=== PATIENT | male | born 2000 | race Caucasian/White ===

== ENCOUNTER 2021-04-13 22:33 | Emergency (ER) | payer SELFPAY ==
[~2021-04-13] VITALS: Ht 175.3 cm; Wt 89.5 kg
[~2021-04-13 22:33] MED LIST: NO HOME MEDICATIONS; TYLENOL/CODEINE1 ML PO
[2021-04-14 01:00] VITALS: BP 134/86; PULSE 82; TEMP 98.2
== END 2021-04-14 01:00 | disposition home or self-care (01) ==
LOC: COL.ER 22:33
DX: S52.121A Displaced fracture of head of right radius, initial encounter for closed fracture (principal); W11.XXXA Fall on and from ladder, initial encounter

== ENCOUNTER 2024-03-15 20:51 | Emergency (ER) | payer BC ==
[~2024-03-15] VITALS: Ht 175.3 cm; Wt 93.6 kg
[2024-03-15 21:12] VITALS: TEMP 98.5
[2024-03-16 01:15] VITALS: BP 124/81; PULSE 82
== END 2024-03-16 01:15 | disposition home or self-care (01) ==
LOC: COL.ER 20:51
DX: S89.91XA Unspecified injury of right lower leg, initial encounter (principal); W51.XXXA Accidental striking against or bumped into by another person, initial encounter; Y93.67 Activity, basketball; Y99.8 Other external cause status
CPT/HCPCS: 31869; L1830; L1846